=== PATIENT | female | born 1960 | race Caucasian/White ===

== ENCOUNTER 2016-12-22 16:25 | Inpatient (IN) | payer OTHER ==
[2016-12-22] VITALS (14 sets, daily range): BP systolic 129–161; BP diastolic 69–126
[~2016-12-22] VITALS: Ht 152.4 cm; Wt 178.8 kg
--- NOTE | ~2016-12-22 | HC ---
[facility] [place] [address] CONSULTATION Name: DANIELE CASIANO Room #: 460-P [facility] IN .R.#: [id number] Admission: 12/22/16 Attend Phys: Jose Cameron DO Discharge: 01/03/17 Date of : 62 Report #: [id number] THIS REPORT FOR: //name// CC: Jose Hood DATE OF SERVICE: 01/03/2017 CHIEF COMPLAINT: Skin fold dermatitis and possible ulceration. HISTORY OF PRESENT ILLNESS: This is a 56-year-old morbidly obese female patient who has been hospitalized here at [facility] since December 22. She was admitted after being found unresponsive at home. She has significant mobility issues at home, has developed multiple areas of breakdown and dermatitis in her skin folds. I have been asked to see her with regard to wound care. It is noted that she is being planned for discharge today. ALLERGIES: INDOMETHACIN. PAST MEDICAL HISTORY: Positive for diabetes, coronary artery disease, morbid obesity, status post lap band, her current weight is estimated to be 400 pounds; hypothyroidism, gastroesophageal reflux disease, and anemia. She had previous , appendectomy, and hysterectomy. SOCIAL HISTORY: Positive for being a former smoker. She lives in [place], [place]. No alcohol use. FAMILY HISTORY: Noncontributory. MEDICATIONS: Include , magnesium oxide, potassium chloride, glucose, Unasyn and azithromycin. PHYSICAL EXAMINATION: VITAL SIGNS: At this time include pulse rate 94, blood pressure 128/65, respiratory rate of 23, and temperature 97.3. GENERAL: This is a morbidly obese female patient who is tearful and in mild distress. HEAD: Normocephalic, atraumatic. . NOSE AND THROAT: Clear. NECK: Supple. LUNGS: Clear. HEART: Regular rhythm. ABDOMEN: Obese, nontender. She has evidence of intertrigo beneath her skin folds of her abdomen and panniculus. She does not have any breakdown in the skin folds of her breast. She has had a large loose stool. I do not see any specific breakdown in her sacral gluteal region. [facility] [address] [place] [address] CONSULTATION Name: DANIELE CASIANO Room #: 460-P [facility] IN ..#: [id number] Admission: 12/22/16 Attend Phys: Jose Cameron DO Discharge: 01/03/17 Date of : 62 Report #: [id number] CLINICAL IMPRESSION: 1. Morbid obesity. 2. Intertrigo, abdominal wall. 3. Diabetes mellitus. 4. Acute hypoxic hypercapnic respiratory failure, now stable. RECOMMENDATION: At this point in time, the patient is going to be discharged home later today. We will recommend continue use of InterDry AG to her skin folds. We recommend increase mobility in her home setting, she will be staying with her and ongoing basic hygiene would be certainly of benefit in this area. I have answered all questions. I appreciate having been asked to see her in consultation. <ELECTRONICALLY SIGNED> By: Dave Bright MD 01/08/17 0741 [id number] Dave Bright MD /nt
--- NOTE | ~2016-12-22 | 2DMMODE ---
[facility] [address] [place] [address] 2 D/M-MODE ECHOCARDIOGRAM Name: DANIELE CASIANO Room #: 246-P [facility] IN ..#: [id number] Admission: 12/22/16 Attend Phys: Jose Cameron, Discharge: Date of : 62 Date of Service: 12/24/16 0950 Report #: [id number] THIS REPORT FOR: //name// APPROVED REPORT Study performed: 12/24/2016 07:27:49 EXAM: Comprehensive 2D, Doppler, and color-flow Echocardiogram Patient Location: ICU Room #: 246 Status: routine Other Information Study Quality: Fair Indications Congestive Heart Failure Diabetes Respiratory failure. Echo Enhancing Agent Indication: Endocardial border delineation Agent(s) / Amount(s) Used: Optison 7 cc 2D Dimensions LVEF(%): 57.16 (>50%) IVSd: 11.88 (7-11mm) LVOT Diam: 22.98 (18-24mm) LVDd: 40.28 mm PWd: 12.24 (7-11mm) Ascending Ao: 36.65 (22-36mm) LVDs: 28.36 (25-40mm) Aortic Root: 33.50 mm Ivory's LVEF: 57.16 % Aortic Valve AoV Peak Hussein.: 1.44 m/s AO Peak Gr.: 8.24 mmHg LVOT Max P.99 mmHg LVOT Max V: 1.12 m/s MARBELLA Vmax: 3.23 cm2 Mitral Valve E/A Ratio: 1.0 MV Decel. Time: 250.00 ms MV E Max Hussein.: 0.92 m/s MV A Hussein.: 0.94 m/s MV PHT: 72.50 ms [facility] [address] [place] [address] 2 D/M-MODE ECHOCARDIOGRAM Name: DANIELE CASIANO Room #: [facility]#: [id number] Admission: 12/22/16 Attend Phys: Jose Cameron, Discharge: Date of : 62 Date of Service: 12/24/16 0950 Report #: [id number] IVRT: 119.95 ms Pulmonary Valve PV Peak Hussein.: 1.39 m/s PV Peak Gr.: 7.73 mmHg Pulmonary Vein P Vein S: 0.33 m/s P Vein A: 0.25 m/s P Vein D: 0.29 m/s P Vein A Dur.: 101.5 msec P Vein S/D Ratio: 1.14 Tricuspid Valve TR Peak Hussein.: 2.81 m/s TR Peak Gr.: 31.48 mmHg PA Pressure: 31.00 mmHg Left Ventricle The left ventricle is normal size. Mild concentric left ventricular hypertrophy. The left ventricular systolic function is normal. The left ventricular ejection fraction is within the normal range. LVEF is 60-65%. Grade I - abnormal relaxation pattern. Right Ventricle The right ventricle is normal size. The right ventricular systolic function is normal. Atria The left atrium size is normal. The right atrium size is normal. Aortic Valve The aortic valve is normal in structure. Trace aortic regurgitation. There is no aortic valvular stenosis. Mitral Valve The mitral valve is normal in structure. There is no mitral valve regurgitation noted. No evidence of mitral valve stenosis. Tricuspid Valve The tricuspid valve is normal in structure. There is trace tricuspid regurgitation. The right atrial pressure is estimated at mmHg. There is mild pulmonary hypertension. The estimated PAP was 31 mmHg plus the right atrial pressure. Pulmonic Valve The pulmonary valve is normal in structure. Trace pulmonic regurgitation. [address] [address] 2 D/M-MODE ECHOCARDIOGRAM Name: DANIELE CASIANO Room #: 246-P [facility] IN [facility]#: [id number] Admission: 12/22/16 Attend Phys: Jose Cameron, Discharge: Date of : 62 Date of Service: 12/24/16 0950 Report #: [id number] Great Vessels The aortic root is normal in size. IVC is not well visualized. Pericardium There is no pericardial effusion. <Conclusion> The left ventricle is normal size. LVEF is 60-65%. The aortic valve is normal in structure. Trace aortic regurgitation. The mitral valve is normal in structure. The tricuspid valve is normal in structure. There is trace tricuspid regurgitation. The right atrial pressure is estimated at mmHg. There is mild pulmonary hypertension. The estimated PAP was 31 mmHg plus the right atrial pressure. The pulmonary valve is normal in structure. Trace pulmonic regurgitation. <ELECTRONICALLY SIGNED> By: Vidal Haynes MD 12/24/1650 Vidal Haynes MD /INF
--- NOTE | ~2016-12-22 | HC ---
[facility] [place] [address] CONSULTATION Name: DANIELE CASIANO Room #: 246-P [facility] IN .R.#: [id number] Admission: 12/22/16 Attend Phys: Jose Cameron DO Discharge: Date of : 62 Report #: [id number] THIS REPORT FOR: //name// CC: Jose Hood DATE OF SERVICE: 12/26/2016 INDICATION: Positive troponin. HISTORY OF PRESENT ILLNESS: This is a 56-year-old female who was transferred from [facility] with unresponsiveness and respiratory failure. The patient is intubated, the history is obtained from her chart and medical records. The patient has a history of obesity, status post lap-band procedure with adjustments, diabetes mellitus, hypothyroidism, depression and hypertension. She reportedly complained of weakness and was admitted with altered mental status and respiratory failure. We are asked to evaluate the patient for an abnormal troponin level, peak of 0.17. The patient has no prior cardiac history. An echo reveals normal LV systolic function. PAST MEDICAL HISTORY: As above, diabetes mellitus, hypothyroidism, morbid obesity with a history of lap-band, hypertension. ALLERGIES: INDOMETHACIN. MEDICATIONS: Please see the MAR for full listing. SOCIAL HISTORY: Former tobacco smoker. REVIEW OF SYSTEMS: Unobtainable. PHYSICAL EXAMINATION: GENERAL: The patient is a morbidly obese female that is intubated and sedated. HEENT: Normocephalic. NECK: No JVD. LUNGS: Diminished breath sounds at the bases, no wheezing. CARDIAC: Distant heart sounds, S1, S2 positive. ABDOMEN: Protuberant, soft, nontender. EXTREMITIES: No major joint deformities, positive for edema. SKIN: No rashes. LABORATORY VALUES: Peak troponin is 0.17. White count is 7.5, hemoglobin is 14.0, sodium is 144, creatinine is 0.7. ECG reveals sinus rhythm, poor R-wave progression. ASSESSMENT AND PLAN: [facility] [address] [place] [address] CONSULTATION Name: DANIELE CASIANO Room #: 246-P [facility] IN [facility].#: [id number] Admission: 12/22/16 Attend Phys: Jose Cameron DO Discharge: Date of : 62 Report #: [id number] 1. Positive troponin level, the peak troponin is 0.17, in the indeterminate range. Unknown clinical status as the patient is unable to give a history. May be related to oxygen mismatch from hypoxia. The echo reveals normal LV systolic function, doubt that this is related to myocardial infarction. Once her respiratory status has improved, we will consider an ischemic evaluation. 2. Respiratory failure/pneumonia, as per pulmonary. Continue with weaning trials. 3. Altered mental status, on propofol at this time. 4. Diabetes mellitus, continue with fingersticks, as per hospitalist. 5. Edema, stable at this time. Thank you for allowing me to participate in the care of your patient. <ELECTRONICALLY SIGNED> By: Yousuf Francisco MD 12/27/16 0932 1821 1858 Yousuf Francisco MD /wlilow
--- NOTE | ~2016-12-22 | HC ---
[facility] [place] [address] CONSULTATION Name: DANIELE CASIANO Room #: 460-P [facility] IN M.R.#: [id number] Admission: 12/22/16 Attend Phys: Jose Cameron DO Discharge: Date of : 62 Report #: [id number] THIS REPORT FOR: //name// CC: Jose Hood DATE OF SERVICE: 12/22/2016 REASON FOR CONSULTATION: Acute respiratory failure. Forty-five minutes critical care time. IMPRESSION: 1. Acute respiratory failure. 2. Pulmonary infiltrates. 3. Cardiomegaly. 4. Diabetes. 5. Hypothyroidism. 6. Elevated troponin. 7. Overweight. PLAN: Venous Doppler of lower extremities, CT head. She has an acute kidney injury. We will hydrate, may do a CT PE protocol at some point. We will recheck urine drug screen. Check Tylenol, alcohol, ammonia levels. We will check an echocardiogram. We will cover for possible aspiration pneumonia. HISTORY OF PRESENT ILLNESS: A 56-year-old female went in to the emergency room at [facility] [place]. History is limited, had decreased level of consciousness, found her down, had been complaining of weakness for the last 2-3 days, foaming in mouth. No nausea or vomiting per chart. No increasing shortness of breath again per chart. FAMILY HISTORY: Unknown. SOCIAL HISTORY: Positive tobacco in the past. Negative ETOH. MEDICATIONS: Past meds include calcium, Celexa, fenofibrate, folic acid, glyburide, levothyroxine, multivitamin, potassium, Zofran. ALLERGIES: INDOCIN. PHYSICAL EXAMINATION: VITAL SIGNS: Sat 99%. Vitals per chart. LUNGS: Coarse. HEENT: Opened eyes. Endotracheal tube in place. HEART: Regular. [facility] [address] [place] [address] CONSULTATION Name: DANIELE CASIANO Room #: 460-P [facility] IN M.R.#: [id number] Admission: 12/22/16 Attend Phys: Jose Cameron DO Discharge: Date of : 62 Report #: [id number] ABDOMEN: Bowel sounds present. Overweight. EXTREMITIES: Showed erythema and edema. Did not move lower extremities well. LABORATORY DATA: White count 10.3, hemoglobin 16.5, platelets 208. TSH 0.945. BUN 37, creatinine 1.9. Troponin 0.15. A pH of 7.285, pCO2 of 57, pO2 of 97 on 100%, rate of 18, tidal volume 500, PEEP of 5. Chest x-ray showed bilateral infiltrates. Endotracheal tube slightly low, ordered to bring this back. We will follow closely with you. <ELECTRONICALLY SIGNED> By: Vicky Zurita MD 12/31/16 1511 [id number] A. Jose De Jesus Zurita MD /nt
[2016-12-22] MEDS ORDERED: CALCIUM 600 +1 EAC1 PO (19:26)
[2016-12-22] MEDS ORDERED: FOLIC ACID1 MG PO (19:27)
[2016-12-22] MEDS ORDERED: FENOFIBRATE160 MG PO (19:27)
[2016-12-22] MEDS ORDERED: CELEXA20 MG PO (19:27)
[2016-12-22] MEDS ORDERED: UNICOMPLEX M TA1 TA1 PO (19:28)
[2016-12-22] MEDS ORDERED: GLYBURIDE 2.52.5 MG PO (19:28)
[2016-12-22] MEDS ORDERED: KLOR-CON 1010 MEQ PO (19:28)
[2016-12-22] MEDS ORDERED: LEVOTHYROXIN0.025 MG PO (19:28)
[2016-12-22] MEDS ORDERED: ZOFRAN ODT4 MG PO (19:29)
[2016-12-22 21:00] LABS: ABG SAMPLE TYPE ARTERIAL; BE(vivo) -1.7 mmol/L (-2 to +3); HCO3 26.4 mmol/L (22.0-26.0); LACTATE 2.51 mmol/L (0.5-2.0); O2(CT) 23.3 mL/dL (15.0-23.0); O2Hb 93.5 % (92.0-98.0); PCO2 56.8 mmHg (35.0-45.0); PO2 97.2 mmHg (80.0-100.0); STICK SITE R.RADIAL; TIDAL VOLUME 500 ml; pH 7.285 (7.360-7.450); sO2 96.5 % (92.0-98.0); tCO2 28.1 mmol/L (24.0-30.0)
[2016-12-22 21:01] LABS: ABG COMMENT A/C MODE
[2016-12-22 21:04] LABS: CALCIUM 8.4 mg/dL (8.5-10.1); CREATININE 1.9 mg/dL (0.6-1.0); POTASSIUM 5.4 mmol/L (3.5-5.1); TROPONIN-I 0.15 ng/mL (<0.04-0.07)
[2016-12-22 21:43] LABS: HEMATOCRIT 52.1 % (37.0-47.0); HEMOGLOBIN 16.5 gm/dL (12.0-15.0); MCH 29.8 pg (26.0-34.0); MCHC 31.6 g/dL (28.0-37.0); MCV 94.2 fL (80.0-100.0); PLATELET COUNT 208 thou/uL (150-400); RBC 5.53 mil/uL (4.20-5.00); WBC 10.3 thou/uL (4.0-11.0)
[2016-12-22 21:50] LABS: MANUAL DIFF YES
[2016-12-22 22:06] LABS: ALBUMIN 2.8 g/dL (3.4-5.0); DIRECT BILIRUBIN 0.3 mg/dL (<0.1-0.3); TOTAL BILIRUBIN 0.6 mg/dL (<0.1-1.0); TOTAL PROTEIN 7.9 g/dL (6.4-8.2)
[2016-12-22 22:11] LABS: ABSOLUTE NEUTROPHILS 8.4 thou/uL (1.4-8.2); ANISOCYTOSIS 1+; TOTAL CELL COUNT 100
[2016-12-23] VITALS (52 sets, daily range): BP systolic 82–156; BP diastolic 47–94
[2016-12-23 05:26] LABS: ABG SAMPLE TYPE ARTERIAL; BE(vivo) 3.6 mmol/L (-2 to +3); HCO3 28.8 mmol/L (22.0-26.0); O2(CT) 22.7 mL/dL (15.0-23.0); O2Hb 96.1 % (92.0-98.0); PO2 98.1 mmHg (80.0-100.0); pH 7.424 (7.360-7.450); sO2 97.5 % (92.0-98.0); tCO2 30.2 mmol/L (24.0-30.0)
[2016-12-23 05:27] LABS: ABG COMMENT A/C 22; STICK SITE R.RADIAL; TIDAL VOLUME 500 ml
[2016-12-23 07:28] LABS: URINE BILIRUBIN NEGATIVE (Negative); URINE BLOOD TRACE (Negative); URINE COLOR YELLOW; URINE GLUCOSE-RANDOM* NEGATIVE (Negative); URINE KETONES NEGATIVE (Negative); URINE LEUKOCYTES-REFLEX NEGATIVE (Negative); URINE PROTEIN (DIPSTICK) NEGATIVE (Negative); URINE UROBILINOGEN 0.2 E.U./dl (0.2-1.0)
[2016-12-23 09:10] LABS: AMP/METHAMP Negative (Negative); BARBITURATES Negative (Negative); BENZODIAZEPINES POSITIVE (Negative); COCAINE Negative (Negative); METHADONE Negative (Negative); OPIATES Negative (Negative); PCP Negative (Negative); THC Negative (Negative)
[2016-12-23 09:56] LABS: HEMATOCRIT 47.4 % (37.0-47.0); HEMOGLOBIN 15.3 gm/dL (12.0-15.0); MCH 29.4 pg (26.0-34.0); MCHC 32.3 g/dL (28.0-37.0); MCV 90.9 fL (80.0-100.0); RBC 5.21 mil/uL (4.20-5.00); RDW 16.7 % (10.5-14.5); WBC 12.7 thou/uL (4.0-11.0)
[2016-12-23 10:05] LABS: ALBUMIN 2.4 g/dL (3.4-5.0); CREATININE 1.5 mg/dL (0.6-1.0); POTASSIUM 4.6 mmol/L (3.5-5.1); TOTAL BILIRUBIN 0.4 mg/dL (<0.1-1.0); TOTAL PROTEIN 6.6 g/dL (6.4-8.2)
[2016-12-23 14:44] LABS: ABG SAMPLE TYPE ARTERIAL; BE(vivo) 6.5 mmol/L (-2 to +3); HCO3 30.3 mmol/L (22.0-26.0); LACTATE 1.69 mmol/L (0.5-2.0); O2(CT) 22.1 mL/dL (15.0-23.0); O2Hb 98.2 % (92.0-98.0); PCO2 40.2 mmHg (35.0-45.0); PO2 201.6 mmHg (80.0-100.0); pH 7.495 (7.360-7.450); sO2 99.5 % (92.0-98.0); tCO2 31.5 mmol/L (24.0-30.0)
[2016-12-23 14:45] LABS: ABG COMMENT CMV; STICK SITE R.RADIAL; TIDAL VOLUME 550 ml
[2016-12-23 16:07] LABS: APTT 23.1 Seconds (24.5-32.8); INR 1.2; PROTIME 12.3 Seconds (9.3-11.4)
[2016-12-24] VITALS (21 sets, daily range): BP systolic 119–175; BP diastolic 51–74
[2016-12-24 05:06] LABS: MCHC 31.9 g/dL (28.0-37.0); WBC 8.4 thou/uL (4.0-11.0)
[2016-12-24 05:08] LABS: ABSOLUTE NEUTROPHILS 5.8 thou/uL (1.4-8.2); BASOPHILS 0.6 % (0.0-2.0); EOSINOPHILS 0.3 % (0.0-3.0); HEMATOCRIT 46.4 % (37.0-47.0); HEMOGLOBIN 14.8 gm/dL (12.0-15.0); LYMPHOCYTES 23.5 % (24.0-44.0); MCH 29.4 pg (26.0-34.0); MCV 92.1 fL (80.0-100.0); MONOCYTES 6.3 % (1.0-8.0); PLATELET COUNT 165 thou/uL (150-400); POLYS 69.3 % (36.0-66.0); RBC 5.04 mil/uL (4.20-5.00); RDW 16.7 % (10.5-14.5)
[2016-12-24 05:14] LABS: CALCIUM 7.8 mg/dL (8.5-10.1)
[2016-12-24 05:17] LABS: POTASSIUM 3.2 mmol/L (3.5-5.1)
[2016-12-24 05:24] LABS: MANUAL DIFF NO
[2016-12-24 13:45] LABS: MAGNESIUM 1.8 mg/dL (1.8-2.4); POTASSIUM 3.1 mmol/L (3.5-5.1)
[2016-12-25] VITALS (24 sets, daily range): BP systolic 107–173; BP diastolic 49–73
[2016-12-25 01:53] LABS: CALCIUM 7.6 mg/dL (8.5-10.1); CREATININE 0.7 mg/dL (0.6-1.0); POTASSIUM 3.1 mmol/L (3.5-5.1)
[2016-12-25 05:29] LABS: ABG SAMPLE TYPE ARTERIAL; BE(vivo) 4.9 mmol/L (-2 to +3); HCO3 29.4 mmol/L (22.0-26.0); LACTATE 1.34 mmol/L (0.5-2.0); O2(CT) 20.1 mL/dL (15.0-23.0); O2Hb 96.5 % (92.0-98.0); PO2 93.4 mmHg (80.0-100.0); pH 7.453 (7.360-7.450); sO2 97.4 % (92.0-98.0); tCO2 30.7 mmol/L (24.0-30.0)
[2016-12-25 05:31] LABS: ABG COMMENT A/C 18; STICK SITE R.RADIAL; TIDAL VOLUME 550 ml
[2016-12-25 06:14] LABS: HEMOGLOBIN 14.5 gm/dL (12.0-15.0); MCH 29.7 pg (26.0-34.0); MCHC 32.8 g/dL (28.0-37.0); MCV 90.4 fL (80.0-100.0); RBC 4.87 mil/uL (4.20-5.00); RDW 16.5 % (10.5-14.5); WBC 6.8 thou/uL (4.0-11.0)
[2016-12-25 06:24] LABS: CALCIUM 7.7 mg/dL (8.5-10.1); CREATININE 0.7 mg/dL (0.6-1.0); POTASSIUM 3.1 mmol/L (3.5-5.1)
[2016-12-25 16:54] LABS: ABG SAMPLE TYPE ARTERIAL; BE(vivo) 2.9 mmol/L (-2 to +3); LACTATE 1.21 mmol/L (0.5-2.0); PCO2 49.6 mmHg (35.0-45.0); pH 7.385 (7.360-7.450); sO2 97.4 % (92.0-98.0); tCO2 30.5 mmol/L (24.0-30.0)
[2016-12-25 16:55] LABS: ABG COMMENT CPAP TRIAL.; Pressure Support 6 cm H20; STICK SITE L.RADIAL
[2016-12-26] VITALS (48 sets, daily range): BP systolic 92–148; BP diastolic 41–79
[2016-12-26 04:53] LABS: ABG SAMPLE TYPE ARTERIAL; BE(vivo) 2.2 mmol/L (-2 to +3); HCO3 28.1 mmol/L (22.0-26.0); LACTATE 1.27 mmol/L (0.5-2.0); O2(CT) 20.6 mL/dL (15.0-23.0); O2Hb 96.2 % (92.0-98.0); PCO2 48.3 mmHg (35.0-45.0); STICK SITE L.RADIAL; pH 7.383 (7.360-7.450); sO2 97.2 % (92.0-98.0); tCO2 29.6 mmol/L (24.0-30.0)
[2016-12-26 04:54] LABS: TIDAL VOLUME 550 ml
[2016-12-26 05:36] LABS: HEMATOCRIT 43.7 % (37.0-47.0); MCH 29.4 pg (26.0-34.0); MCV 91.9 fL (80.0-100.0); RBC 4.75 mil/uL (4.20-5.00); RDW 16.8 % (10.5-14.5); WBC 7.5 thou/uL (4.0-11.0)
[2016-12-26 05:42] LABS: MANUAL DIFF YES
[2016-12-26 06:01] LABS: ALBUMIN 1.9 g/dL (3.4-5.0); CALCIUM 7.2 mg/dL (8.5-10.1); CREATININE 0.7 mg/dL (0.6-1.0); POTASSIUM 3.2 mmol/L (3.5-5.1); TOTAL BILIRUBIN 0.5 mg/dL (<0.1-1.0)
[2016-12-26 09:29] LABS: ABSOLUTE NEUTROPHILS 4.8 thou/uL (1.4-8.2); ANISOCYTOSIS 1+; PLATELET COUNT 150 thou/uL (150-400); PLATELET ESTIMATE NORMAL; TOTAL CELL COUNT 100
[2016-12-26 18:02] LABS: ABG SAMPLE TYPE ARTERIAL; BE(vivo) -1.3 mmol/L (-2 to +3); HCO3 28.4 mmol/L (22.0-26.0); LACTATE 1.32 mmol/L (0.5-2.0); O2(CT) 20.4 mL/dL (15.0-23.0); PCO2 69.7 mmHg (35.0-45.0); PO2 70.6 mmHg (80.0-100.0); Pressure Support 8 cm H20; STICK SITE L.RADIAL; pH 7.228 (7.360-7.450); sO2 90.5 % (92.0-98.0); tCO2 30.5 mmol/L (24.0-30.0)
[2016-12-26 23:08] LABS: ALPHA TOCOPHEROL 7.2 mg/L (5.3-16.8)
[2016-12-27] VITALS (57 sets, daily range): BP systolic 101–163; BP diastolic 45–91
[2016-12-27 05:02] LABS: HEMATOCRIT 44.6 % (37.0-47.0); HEMOGLOBIN 13.9 gm/dL (12.0-15.0); MCH 28.9 pg (26.0-34.0); MCHC 31.2 g/dL (28.0-37.0); MCV 92.7 fL (80.0-100.0); RBC 4.81 mil/uL (4.20-5.00); RDW 17.1 % (10.5-14.5); WBC 5.8 thou/uL (4.0-11.0)
[2016-12-27 05:11] LABS: CALCIUM 7.4 mg/dL (8.5-10.1); CREATININE 0.7 mg/dL (0.6-1.0); POTASSIUM 3.3 mmol/L (3.5-5.1)
[2016-12-27 11:07] LABS: ABG SAMPLE TYPE ARTERIAL; BE(vivo) -0.4 mmol/L (-2 to +3); HCO3 26.5 mmol/L (22.0-26.0); LACTATE 1.37 mmol/L (0.5-2.0); O2(CT) 21.1 mL/dL (15.0-23.0); O2Hb 96.6 % (92.0-98.0); PCO2 51.8 mmHg (35.0-45.0); PO2 106.6 mmHg (80.0-100.0); sO2 97.5 % (92.0-98.0)
[2016-12-27 11:08] LABS: STICK SITE L.RADIAL; pH 7.326 (7.360-7.450)
[2016-12-27 11:09] LABS: Pressure Support 8 cm H20; TIDAL VOLUME 470 ml
[2016-12-27 13:00] LABS: MAGNESIUM 1.6 mg/dL (1.8-2.4); POTASSIUM 3.8 mmol/L (3.5-5.1)
[2016-12-27 17:11] LABS: ABG SAMPLE TYPE ARTERIAL; BE(vivo) 0.5 mmol/L (-2 to +3); HCO3 27.3 mmol/L (22.0-26.0); PCO2 51.8 mmHg (35.0-45.0); PO2 80.4 mmHg (80.0-100.0); sO2 95.1 % (92.0-98.0); tCO2 28.9 mmol/L (24.0-30.0)
[2016-12-27 17:12] LABS: ABG COMMENT NO COMPLICATIONS.; Face Shield 35 %; STICK SITE L.RADIAL
[2016-12-28] VITALS (17 sets, daily range): BP systolic 92–141; BP diastolic 33–75
[2016-12-28 00:04] LABS: MAGNESIUM 2.1 mg/dL (1.8-2.4); POTASSIUM 3.5 mmol/L (3.5-5.1)
[2016-12-28 05:23] LABS: HEMATOCRIT 44.4 % (37.0-47.0); HEMOGLOBIN 14.1 gm/dL (12.0-15.0); MCH 29.2 pg (26.0-34.0); MCHC 31.8 g/dL (28.0-37.0); MCV 91.8 fL (80.0-100.0); RBC 4.84 mil/uL (4.20-5.00); RDW 16.8 % (10.5-14.5); WBC 5.1 thou/uL (4.0-11.0)
[2016-12-28 05:23] LABS: ABG SAMPLE TYPE ARTERIAL; BE(vivo) -0.5 mmol/L (-2 to +3); HCO3 25.8 mmol/L (22.0-26.0); LACTATE 1.03 mmol/L (0.5-2.0); O2(CT) 20.4 mL/dL (15.0-23.0); O2Hb 95.3 % (92.0-98.0); PCO2 48.3 mmHg (35.0-45.0); PO2 87.4 mmHg (80.0-100.0); pH 7.345 (7.360-7.450); sO2 96.1 % (92.0-98.0); tCO2 27.3 mmol/L (24.0-30.0)
[2016-12-28 05:25] LABS: STICK SITE R.RADIAL
[2016-12-28 05:35] LABS: CALCIUM 7.5 mg/dL (8.5-10.1); CREATININE 0.6 mg/dL (0.6-1.0); POTASSIUM 3.4 mmol/L (3.5-5.1)
[2016-12-28 10:25] LABS: POTASSIUM 3.6 mmol/L (3.5-5.1)
[2016-12-28 21:03] LABS: ABG SAMPLE TYPE ARTERIAL; BE(vivo) 2.7 mmol/L (-2 to +3); LACTATE 1.13 mmol/L (0.5-2.0); O2(CT) 20.2 mL/dL (15.0-23.0); O2Hb 93.4 % (92.0-98.0); PCO2 63.5 mmHg (35.0-45.0); PO2 80.5 mmHg (80.0-100.0); sO2 94.5 % (92.0-98.0)
[2016-12-28 21:04] LABS: STICK SITE R.RADIAL; pH 7.307 (7.360-7.450)
[2016-12-29 04:38] VITALS: BP 105/51
[2016-12-29 06:10] LABS: ABSOLUTE NEUTROPHILS 2.7 thou/uL (1.4-8.2); BASOPHILS 1.7 % (0.0-2.0); HEMATOCRIT 43.8 % (37.0-47.0); HEMOGLOBIN 13.9 gm/dL (12.0-15.0); LYMPHOCYTES 33.4 % (24.0-44.0); MCH 29.8 pg (26.0-34.0); MCHC 31.7 g/dL (28.0-37.0); MCV 93.9 fL (80.0-100.0); MONOCYTES 10.3 % (1.0-8.0); PLATELET COUNT 163 thou/uL (150-400); POLYS 49.6 % (36.0-66.0); RBC 4.66 mil/uL (4.20-5.00); RDW 16.9 % (10.5-14.5); WBC 5.5 thou/uL (4.0-11.0)
[2016-12-29 06:16] LABS: MANUAL DIFF NO
[2016-12-29 06:18] LABS: CALCIUM 7.8 mg/dL (8.5-10.1); CREATININE 0.7 mg/dL (0.6-1.0); POTASSIUM 3.1 mmol/L (3.5-5.1)
[2016-12-29 07:23] VITALS: BP 109/51
[2016-12-29 11:35] VITALS: BP 121/53
[2016-12-29 15:14] VITALS: BP 133/71
[2016-12-29 19:40] VITALS: BP 149/76
[2016-12-30 04:31] VITALS: BP 153/75
[2016-12-30 05:05] LABS: HEMATOCRIT 41.3 % (37.0-47.0); HEMOGLOBIN 12.2 gm/dL (12.0-15.0); MCH 29.3 pg (26.0-34.0); MCHC 29.4 g/dL (28.0-37.0); PLATELET COUNT 146 thou/uL (150-400); RBC 4.15 mil/uL (4.20-5.00); RDW 17.9 % (10.5-14.5); WBC 4.1 thou/uL (4.0-11.0)
[2016-12-30 05:10] LABS: MANUAL DIFF YES; MCV 99.5 fL (80.0-100.0)
[2016-12-30 06:31] LABS: ALBUMIN 1.6 g/dL (3.4-5.0); CREATININE 0.8 mg/dL (0.6-1.0); POTASSIUM 3.1 mmol/L (3.5-5.1); TOTAL BILIRUBIN 0.4 mg/dL (<0.1-1.0); TOTAL PROTEIN 5.5 g/dL (6.4-8.2)
[2016-12-30 06:48] LABS: ABSOLUTE NEUTROPHILS 2.1 thou/uL (1.4-8.2); PLATELET ESTIMATE NORMAL; TOTAL CELL COUNT 100
[2016-12-30 07:22] VITALS: BP 152/81
[2016-12-30 11:08] VITALS: BP 157/84
[2016-12-30 15:13] VITALS: BP 151/84
[2016-12-30 20:20] VITALS: BP 169/90
[2016-12-31 03:05] VITALS: BP 153/80
[2016-12-31 04:49] LABS: ABSOLUTE NEUTROPHILS 2.9 thou/uL (1.4-8.2); EOSINOPHILS 1.6 % (0.0-3.0); HEMATOCRIT 44.2 % (37.0-47.0); LYMPHOCYTES 30.6 % (24.0-44.0); MCH 29.3 pg (26.0-34.0); MCHC 32.4 g/dL (28.0-37.0); MONOCYTES 10.7 % (1.0-8.0); PLATELET COUNT 178 thou/uL (150-400); POLYS 56.1 % (36.0-66.0); RBC 4.89 mil/uL (4.20-5.00); RDW 16.5 % (10.5-14.5); WBC 5.2 thou/uL (4.0-11.0)
[2016-12-31 04:53] LABS: HEMOGLOBIN 14.3 gm/dL (12.0-15.0); MANUAL DIFF NO; MCV 90.4 fL (80.0-100.0)
[2016-12-31 05:27] LABS: CALCIUM 8.4 mg/dL (8.5-10.1); CREATININE 0.7 mg/dL (0.6-1.0); TOTAL BILIRUBIN 0.5 mg/dL (<0.1-1.0); TOTAL PROTEIN 6.5 g/dL (6.4-8.2)
[2016-12-31 07:26] VITALS: BP 159/94
[2016-12-31 12:30] VITALS: BP 161/78
[2016-12-31 16:08] VITALS: BP 139/67
[2016-12-31 19:32] VITALS: BP 159/84
[2017-01-01 04:00] VITALS: BP 139/68
[2017-01-01 05:54] LABS: MAGNESIUM 1.5 mg/dL (1.8-2.4)
[2017-01-01 06:03] LABS: POTASSIUM 2.9 mmol/L (3.5-5.1)
[2017-01-01 08:09] VITALS: BP 153/64
[2017-01-01 14:11] VITALS: BP 145/74
[2017-01-01 20:30] VITALS: BP 141/71
[2017-01-02 04:20] VITALS: BP 138/72
[2017-01-02 06:34] LABS: ABSOLUTE NEUTROPHILS 3.2 thou/uL (1.4-8.2); BASOPHILS 1.3 % (0.0-2.0); EOSINOPHILS 2.7 % (0.0-3.0); HEMATOCRIT 44.6 % (37.0-47.0); HEMOGLOBIN 14.4 gm/dL (12.0-15.0); LYMPHOCYTES 33.5 % (24.0-44.0); MCH 29.5 pg (26.0-34.0); MCHC 32.3 g/dL (28.0-37.0); MCV 91.4 fL (80.0-100.0); MONOCYTES 8.5 % (1.0-8.0); PLATELET COUNT 168 thou/uL (150-400); RBC 4.88 mil/uL (4.20-5.00); WBC 5.9 thou/uL (4.0-11.0)
[2017-01-02 06:36] LABS: MANUAL DIFF NO
[2017-01-02 06:48] LABS: CALCIUM 8.5 mg/dL (8.5-10.1); CREATININE 0.8 mg/dL (0.6-1.0); POTASSIUM 3.1 mmol/L (3.5-5.1); TOTAL BILIRUBIN 0.4 mg/dL (<0.1-1.0); TOTAL PROTEIN 6.7 g/dL (6.4-8.2)
[2017-01-02 07:29] VITALS: BP 132/63
[2017-01-02 07:38] LABS: ABG SAMPLE TYPE ARTERIAL; BE(vivo) 1.3 mmol/L (-2 to +3); HCO3 29.3 mmol/L (22.0-26.0); LACTATE 0.99 mmol/L (0.5-2.0); O2(CT) 19.8 mL/dL (15.0-23.0); O2Hb 93.1 % (92.0-98.0); PCO2 60.7 mmHg (35.0-45.0); PO2 80.7 mmHg (80.0-100.0); sO2 94.5 % (92.0-98.0); tCO2 31.2 mmol/L (24.0-30.0)
[2017-01-02 07:39] LABS: pH 7.302 (7.360-7.450)
[2017-01-02 11:35] VITALS: BP 111/86
[2017-01-02 12:29] VITALS: BP 111/86
[2017-01-02 15:28] VITALS: BP 142/56
[2017-01-02 19:44] VITALS: BP 144/72
[2017-01-03 03:44] VITALS: BP 143/66
[2017-01-03 07:35] VITALS: BP 129/63
[2017-01-03 10:35] VITALS: BP 111/86
[2017-01-03 11:56] VITALS: BP 128/65
[2017-01-03 15:07] VITALS: BP 111/86
== END 2017-01-03 15:05 | disposition home or self-care (01) | DRG 870 ==
LOC: ICU 16:25 → 4W 18:35 → ICU 18:35 → 4W 12-28 13:20
PROVIDERS: Family Medicine; Internal Medicine Pulmonary Disease; Nurse Practitioner Acute Care; Nurse Practitioner Adult Health; Nurse Practitioner Family; Psychiatry & Neurology Neurology
PROC: 5A1955Z Respiratory Ventilation, Greater than 96 Consecutive Hours (ICD-10-PCS; principal; 2016-12-22)
PROC: 02HV33Z Insertion of Infusion Device into Superior Vena Cava, Percutaneous Approach (ICD-10-PCS; 2016-12-22)
PROC: 0DJ08ZZ Inspection of Upper Intestinal Tract, Via Natural or Artificial Opening Endoscopic (ICD-10-PCS; 2016-12-26)
PROC: 5A09557 Assistance with Respiratory Ventilation, Greater than 96 Consecutive Hours, Continuous Positive Airway Pressure (ICD-10-PCS; 2016-12-28)
DX: A41.9 Sepsis, unspecified organism (principal); J18.9 Pneumonia, unspecified organism; G93.40 Encephalopathy, unspecified; J96.21 Acute and chronic respiratory failure with hypoxia; J96.22 Acute and chronic respiratory failure with hypercapnia; N17.9 Acute kidney failure, unspecified; Z68.45 Body mass index [BMI] 70 or greater, adult; E87.0 Hyperosmolality and hypernatremia; E87.1 Hypo-osmolality and hyponatremia; J44.0 Chronic obstructive pulmonary disease with (acute) lower respiratory infection; I50.30 Unspecified diastolic (congestive) heart failure; K92.0 Hematemesis; E66.01 Morbid (severe) obesity due to excess calories; E11.9 Type 2 diabetes mellitus without complications; I25.10 Atherosclerotic heart disease of native coronary artery without angina pectoris; K21.9 Gastro-esophageal reflux disease without esophagitis; K25.9 Gastric ulcer, unspecified as acute or chronic, without hemorrhage or perforation; E87.6 Hypokalemia; R13.10 Dysphagia, unspecified; D64.9 Anemia, unspecified; I11.0 Hypertensive heart disease with heart failure; F32.9 Major depressive disorder, single episode, unspecified; E03.9 Hypothyroidism, unspecified; L30.4 Erythema intertrigo; E78.5 Hyperlipidemia, unspecified; Z87.891 Personal history of nicotine dependence; Z88.6 Allergy status to analgesic agent; Z90.710 Acquired absence of both cervix and uterus; Z98.84 Bariatric surgery status; Z98.891 History of uterine scar from previous surgery; Z74.01 Bed confinement status
CPT/HCPCS: 10047; 10078; 27000; 62110; 62900

== ENCOUNTER → 2019-12-09 | Outpatient (CLI) | payer OTHER ==
[~2019-12-09] MED LIST: CALCIUM 600 +1 EAC1 PO; CELEXA20 MG PO; FENOFIBRATE160 MG PO; FOLIC ACID1 MG PO; GLYBURIDE 2.52.5 MG PO; KLOR-CON 1010 MEQ PO; LEVOTHYROXIN0.025 MG PO; UNICOMPLEX M TA1 TA1 PO; ZOFRAN ODT4 MG PO
== END ==
LOC: LAB 09:00
PROVIDERS: ATTEND Internal Medicine
DX: Z01.812 Encounter for preprocedural laboratory examination (principal); Z20.828 Contact with and (suspected) exposure to other viral communicable diseases

== ENCOUNTER → 2019-12-11 | Outpatient (CLI) | payer OTHER ==
--- NOTE | 2019-12-13 19:09 | SLE ---
[facility] [place] [address] POLYSOMNOGRAPHY STUDY Name: DANIELE CASIANO Room #: [facility]#: [id number] Admission: 12/11/19 Attend Phys: Tomas Brown MD Discharge: Date of : 62 Report #: [id number] THIS REPORT FOR: //name// CC: FAM unknown Tomas Brown MD DATE OF SERVICE: 12/12/2019 SLEEP STUDY ATTENDING PHYSICIAN: Tomas Brown M.D. The patient is a 59-year-old who weighs 159 pounds with a BMI of 25.7. The patient's Newberry score was 2. The patient underwent split night study performed at [facility]. During the night study, the patient spent 368 minutes in bed and slept for 275 minutes with a low sleep efficiency of 75%. Sleep latency was 17.3 minutes with a REM latency of 125 minutes. Sleep architecture showed normal stage 1 sleep, increased stage 2 sleep, normal slow wave and reduced REM sleep, which was 6.5% of the total sleep time. During the initial diagnostic portion of the study, the patient slept for 127 minutes. During that time, there was one obstructive apnea, no mixed apneas, 2 central apneas and 20 hypopneas. The patient's AHI was 10.9 per hour with a REM AHI of 12 per hour and a supine AHI of 11 per hour. EKG monitoring revealed an average heart rate of 57 beats per minute. No sustained arrhythmias observed. PLMS were seen at an index of 57 per hour and 9 per hour caused EEG arousals. Nocturnal oximetry study revealed an average oxygen saturation of 93% with the lowest of 80%. 11 minutes were spent in oxygen saturation of less than 89%. The patient met the criteria for CPAP initiation. It was started at 7 cm water and titrated up to 17 cm water. At the final pressure, the patient had 17.2 minutes of sleep. Supine sleep was seen throughout, but no REM sleep observed. The patient's AHI was reduced to 3.5 per hour and oxygen saturation remained above 90%. IMPRESSION: 1. Mild obstructive sleep apnea at an AHI of 10.9 per hour. 2. Mild nocturnal hypoxia secondary to ALVAREZ but resolved with CPAP. 3. Severe periodic limb movements at an index of 57 per hour and 9 per hour [address] [address] POLYSOMNOGRAPHY STUDY Name: DANIELE CASIANO Room #: [facility]#: [id number] Admission: 12/11/19 Attend Phys: Tomas Brown MD Discharge: Date of : 62 Report #: [id number] caused EEG arousals. RECOMMENDATIONS: 1. CPAP at 17 cm water completely eliminated the patient's sleep apnea and should be used on a nightly basis. REM sleep was not seen at this pressure. 2. The patient should have a followup in 4-6 weeks to assess compliance with CPAP and to document clinical improvement. In addition, the patient should have a review of the download data to make sure AHI remains less than 5 per hour. 3. Avoid [employer] depressants. 4. Cautioned regarding driving until symptoms of sleep apnea resolve with the use of CPAP. 5. The patient should also be further evaluated for symptoms of restless legs during the day and if present, it can be treated with dopaminergic agonist agents. <ELECTRONICALLY SIGNED> By: Kamari Hein MD 12/13/19 [id number] [id number] 1833 Kamari Hein MD /nt
== END ==
LOC: SLEEPLAB 12-09 08:00 → LAB 12-09 08:00 → SLEEPLAB 10:14 → LAB 10:46 → EDSTATUS 15:22 → SLEEPLAB 21:16
PROVIDERS: ATTEND Internal Medicine
DX: G47.33 Obstructive sleep apnea (adult) (pediatric) (principal); G47.34 Idiopathic sleep related nonobstructive alveolar hypoventilation; G47.61 Periodic limb movement disorder; Z68.25 Body mass index [BMI] 25.0-25.9, adult